=== PATIENT | male | born 1955 | race Caucasian/White ===

== ENCOUNTER 2019-03-03 13:13 | Emergency (ER) | payer OTHER ==
[~2019-03-03] VITALS: Ht 185.4 cm; Wt 88.5 kg
[2019-03-03] MEDS ORDERED: AVONEX (13:35)
[2019-03-03] MEDS ORDERED: TAMS0.4C PO (16:12)
[2019-03-03] MEDS ORDERED: KETOROLAC TROME10 MG PO (16:12)
== END 2019-03-03 16:33 | disposition home or self-care (01) ==
LOC: ER 13:13
DX: N20.2 Calculus of kidney with calculus of ureter (principal); N28.1 Cyst of kidney, acquired; R10.84 Generalized abdominal pain